=== PATIENT | female | born 1975 | race Caucasian/White ===

== ENCOUNTER → 2017-06-21 | Outpatient (CLI) | payer OTHER | LOC: FIMAGING 13:29 | PROVIDERS: ATTEND Advanced Practice Midwife | DX: O09.521 Supervision of elderly multigravida, first trimester (principal); O99.281 Endocrine, nutritional and metabolic diseases complicating pregnancy, first trimester; E03.9 Hypothyroidism, unspecified; Z3A.12 12 weeks gestation of pregnancy; Z86.718 Personal history of other venous thrombosis and embolism ==

== ENCOUNTER → 2017-07-17 | Outpatient (CLI) | payer OTHER | LOC: FIMAGING 12:13 | PROVIDERS: ATTEND Obstetrics & Gynecology | DX: Z36.89 Encounter for other specified antenatal screening (principal); Z3A.16 16 weeks gestation of pregnancy; O09.522 Supervision of elderly multigravida, second trimester; O99.282 Endocrine, nutritional and metabolic diseases complicating pregnancy, second trimester; E03.9 Hypothyroidism, unspecified ==

== ENCOUNTER → 2017-08-16 | Outpatient (CLI) | payer OTHER | LOC: FIMAGING 13:13 | PROVIDERS: ATTEND Obstetrics & Gynecology | DX: O09.512 Supervision of elderly primigravida, second trimester (principal); Z3A.20 20 weeks gestation of pregnancy ==

== ENCOUNTER → 2017-10-03 | Outpatient (CLI) | payer OTHER | LOC: FIMAGING 15:06 | PROVIDERS: ATTEND Advanced Practice Midwife | DX: N60.01 Solitary cyst of right breast (principal); N60.02 Solitary cyst of left breast ==

== ENCOUNTER 2017-12-27 06:02 | Inpatient (IN) | payer OTHER ==
[2017-12-27] MEDS ORDERED: TERBUTALINE SULFATE 1 MG/ML VIAL IV PRN (06:45)
[2017-12-27] MEDS ORDERED: OLIVE OIL 118 ML BTL MISC PRN (06:45)
[2017-12-27] MEDS ORDERED: EPSOM SALT 454 GM TP PRN (06:45)
[2017-12-27] MEDS ORDERED: LR 1,000 ML IV PRN (06:45)
[2017-12-27] MEDS ORDERED: IBUPROFEN 600 MG TAB PO PRN (06:45)
[2017-12-27] MEDS ORDERED: OXYTOCIN/RINGERS LACTATE 1,000 ML IV PRN (06:45)
[2017-12-27] MEDS ORDERED: LIDOCAINE 1% 300 MG/30 ML SDV SC PRN (06:45)
[2017-12-27] MEDS ORDERED: MISOPROSTOL 200 MCG TAB PR PRN (06:45)
[2017-12-27 07:14] LABS: PLATELET COUNT 322 10^3/uL (150-400)
[2017-12-27] MEDS ORDERED: TERBUTALINE SULFATE 1 MG/ML VIAL ONE (07:17)
[2017-12-27] MEDS ORDERED: OXYTOCIN 10 UNIT/ML VIAL ONE (07:17)
[2017-12-27] MEDS ORDERED: LIDOCAINE 1% 300 MG/30 ML SDV ONE (07:17)
[2017-12-27] MEDS ORDERED: OLIVE OIL 118 ML BTL ONE (07:17)
[2017-12-27] MEDS ORDERED: AMMONIA AROMATIC 1 EACH AMP IH ONE (07:17)
[2017-12-27] MEDS ORDERED: MISOPROSTOL 200 MCG TAB ONE (07:18)
[2017-12-27] MEDS: ONDANSETRON 4 MG/2 ML VIAL IVP PRN ×2 (07:39→20:22)
--- NOTE | 2017-12-27 07:51 | PDGENHP ---
History and Physical History and Physical: CARE: Formerly [facility] HPI: Tamar is a [id number] with IUP@ 39-6 wks that presents to L&D for IOL 2/2 AMA (42yo). She was seen in office yesterday 12/26/17 and had basurto balloon placed with 40mL. She presents to labor and delivery this morning with regular and painful contractions. She denies any LOF, VB. She reports +FM. Basurto Balloon is not in cervix- came out at some point, though patient is unaware of when. EDC: 12/28/17 which is based on LMP: 03/23/17 which is known and consistent with Ultrasound at 9weeks. Her is complicated by: - AMA (42yo) - hypothyroid - h/o DVT (on lovenox, then switched to heparin at 36wks) - monosomy X - h/o MJ use (none during ) Review of Systems: Constitutional: Denies any fever, chills, or fatigue HEENT: denies any visual changes, difficulty swallowing, hearing loss Cardiovascular: Denies any chest pain, palpitations, leg swelling Respiratory: denies any cough, wheezing, or shortness of breathe GI: Denies any nausea, vomiting, diarrhea, constipation : denies any dysuria, urgency, frequency, vaginal bleeding Musculoskeletal: denies any muscle or bone pain Skin: denies any rashes Neuro: denies any headache, seizures, lightheadedness, dizziness, or loss of consciousness Psychiatric: denies any depression, anxiety, or SI/HI thoughts HISTORY: Previous OB history: EAB x2 (no complications) Past medical history: h/o DVT, hypothyroid Past surgical history: lumpectomy Medications: PNV, levothyroxine, heparin Allergies (list reaction): NKDA LABS: Rh:A+ ABS: Neg Rubella: Immune HbsAg: NR HIV: NR VDRL: NR 1hr: 89 GC: Neg Chlamydia: Neg Pap: Normal GBS: negative BMI: (prepreg) 22 PHYSICAL EXAM: Constitutional: WN, A&Ox3 HEENT: normocephalic atraumatic, supple Heart: RRR, no murmur Chest: CTA-B Abdomen: Soft, nontender, gravid SVE: 1/th/high (in office on 12/26/17) Extremities: no edema, negative homans sign Neuro: grossly normal Psych: normal affect assessment: Reassuring FHTs, cat 1 FHR tracing +accels, no decels, moderate variability Contractions: toco q 2-4min Assessment: 1) 42yo with IUP@ 39-6wks (L/9) 2) active labor 3) GBS negative 4) Cat 1 FHR tracing Plan: 1) Admit to L&D 2) expectant management 3) pain management PRN 4) reassess 2hr/PRN 5) anticipate 6) Dr Hendricks aware of POC
[2017-12-27] MEDS: fentaNYL 100 MCG/2 ML INJ IVP PRN ×2 (08:39→10:29)
--- NOTE | 2017-12-27 08:39 | OBPROG ---
Labor Progress Note Assessment/Plan: Assessment: [id number] with IUP@39-6wks IOL 2/2 AMA (42yo) d/o DVT, on anticoag (last dose 12/26 @ 1000) early labor cat 1 FHR tracing GBS neg Plan: cont expectant management IV pain meds JACQUES if desired reassess 2hr/PRN 12/27/17 08:34 Subjective/Intrapartum Course: 12/27/17 09:21 Pt doing well, breathing through each contraction. She has tried hydrotherapy. currently on hands/knees. She has received pain meds via IV. She declines JACQUES at this time. Edwin, partner, supportive at BS. Objective: 12/27/17 06:30 Patient ABO/Rh A POSITIVE 12/27/17 06:30 - SVE Dilation (cm): 3 Effacement (%): 90 Station: -1 - Contraction Pattern Assessment Current Contraction Pattern: Regular - FHR Assessment Oconnell FHR (bpm): 130 FHR Pattern Variability: Moderate FHR Category: 1 Oxytocin Orders Assessment - Pre-Induction/Augmentation Assessment Gestational Age: 39 week(s) and 6 day(s) ICD10 Worksheet Patient Problems: Problems Problem Status Onset AMA (advanced maternal age) primigravida 35+ Acute Labor without complication Acute
[2017-12-27] MEDS ORDERED: PHENYLEPHRINE HCL 100 MCG/ML SYR ONE (10:33)
[2017-12-27] MEDS ORDERED: BUPIVACAINE 0.25% 30 ML SDV ONE (10:33)
[2017-12-27] MEDS ORDERED: ONDANSETRON 4 MG/2 ML VIAL IVP PRN (11:13)
[2017-12-27] MEDS ORDERED: PHENYLEPHRINE HCL 100 MCG/ML SYR IVP PRN (11:13)
[2017-12-27] MEDS ORDERED: METOCLOPRAMIDE 10 MG/2 ML VIAL IVP PRN (11:13)
[2017-12-27] MEDS ORDERED: NALOXONE HCL 0.4 MG/ML INJ IVP PRN (11:13)
--- NOTE | 2017-12-27 11:13 | PREANESOB ---
Obstetric Pre-Anesthesia Info - General Info Proposed Procedure: cse for L : 3 Para: 0 BRAIN: 12/28/17 Gestational Age: 39 week(s) and 6 day(s) - Info Status: Full Term - Labor Status Cervical Dilation per last OB SVE: 5 Station per last OB SVE: -1 Amniotic Fluid Color: Clear Pitocin: In Use Indications for Labor Analgesia: Augmentation of Labor, Induction of Labor Labor Epidural: Proposed Anesthesia Allergies/Adverse Reactions: Allergy/AdvReac Type Severity Reaction Status Date / Time cefaclor [From Ceclor] Allergy Verified 12/27/17 06:24 cephalexin [From Keflex] Allergy Verified 12/27/17 06:24 cephalexin monohydrate Allergy Verified 12/27/17 06:24 [From Keflex] erythromycin base Allergy Verified 12/27/17 06:24 [From Freeman-Tab] Penicillins Allergy Verified 12/27/17 06:24 Sulfa (Sulfonamide Allergy Verified 12/27/17 06:24 Antibiotics) tetracycline Allergy Verified 12/27/17 06:24 Home Medications: Medication Instructions Recorded Ciprofloxacin [Cipro 500 mg] 500 mg PO BID@1000,2000 #10 tab 02/10/11 Hydrocodone Bit/Acetaminophen 1 tab PO Q4-6PRN PRN #20 tab 02/10/11 [Vicodin 5/500] Levothyroxine [Levothroid, 150 mcg PO DAILY@1000 02/10/11 Synthroid] ACETAMINOPHEN 12/27/17 B-6 12/27/17 Benadryl 25 MG (*) 12/27/17 Heparin 12/27/17 Iron 12/27/17 12/27/17 Prevacid 12/27/17 Unisom 12/27/17 Visit Medications: Generic Name Dose Route Start Last Admin Trade Name Freq PRN Reason Stop Dose Admin Fentanyl 50 mcg 12/27/17 08:34 12/27/17 10:29 Sublimaze IVP 01/06/18 08:33 50 mcg Q4HRS PRN Administration Pain, Severe Unable to Take PO Lactated Ringer's 1,000 mls @ 0 mls/hr 12/27/17 06:45 Lr IV 12/28/17 06:44 PRN PRN SEE PROTOCOL CONDITIONS Protocol Per Protocol Oxytocin/Lactated Ringer's 1,000 mls @ 125 mls/hr 12/27/17 06:45 Pitocin 20 Units/Lr (Premix) IV PRN PRN Post bleeding Ibuprofen 600 mg 12/27/17 06:45 Motrin PO ONCE PRN post , pain Lidocaine HCl 300 mg 12/27/17 06:45 Lidocaine Hcl 1% SC 06/25/18 06:44 ONCE PRN episiotomy Magnesium Sulfate 454 gm 12/27/17 06:45 Epsom Salt TP 06/25/18 06:44 Q1H PRN perineal discomfort Misoprostol 800 - 1,000 mcg 12/27/17 06:45 Cytotec HI ONCE PRN Vaginal Atony/Bleeding [place] Oil 118 ml 12/27/17 06:45 Sweet Oil MISC 06/25/18 06:44 ONCE PRN perineal massage Ondansetron HCl 4 mg 12/27/17 07:25 12/27/17 07:39 Zofran IVP 06/25/18 07:24 4 mg Q4HRS PRN Administration Nausea/Vomiting, Can't Take PO Terbutaline Sulfate 0.25 mg 12/27/17 06:45 Brethine IV 06/25/18 06:44 ONCE PRN Tachysystole Discontinued Medications Generic Name Dose Route Start Last Admin Trade Name Freq PRN Reason Stop Dose Admin Ammonia (Aromatic Spirit) Confirm 12/27/17 07:17 Ammonia Aromatic Administered 12/27/17 07:18 Dose 1 each IH .STK-MED ONE Bupivacaine HCl Confirm 12/27/17 10:33 Sensorcaine 0.25% Sdv Administered 12/27/17 10:34 Dose 30 ml .ROUTE .STK-MED ONE Lidocaine HCl Confirm 12/27/17 07:17 Lidocaine Hcl 1% Administered 12/27/17 07:18 Dose 300 mg .ROUTE .STK-MED ONE Misoprostol Confirm 12/27/17 07:18 Cytotec Administered 12/27/17 07:19 Dose 1,000 mcg .ROUTE .STK-MED ONE [place] Oil Confirm 12/27/17 07:17 Sweet Oil Administered 12/27/17 07:18 Dose 118 ml .ROUTE .STK-MED ONE Oxytocin Confirm 12/27/17 07:17 Pitocin Administered 12/27/17 07:18 Dose 40 unit .ROUTE .STK-MED ONE Phenylephrine HCl Confirm 12/27/17 10:33 Neosynephrine Administered 12/27/17 10:34 Dose 1,000 mcg .ROUTE .STK-MED ONE Terbutaline Sulfate Confirm 12/27/17 07:17 Brethine Administered 12/27/17 07:18 Dose 1 mg .ROUTE .STK-MED ONE - Vital Signs Height/Weight (Nursing): Height 162.56 cm Weight 74.843 kg - Focused Exam Neck exam: FROM Mallampati Score: Class 1 Mouth exam: normal dental/mouth exam Pulmonary: no respiratory distress Cardiovascular: regular rate and rhythym Labs: 12/27/17 06:30 12/27/17 06:30 Patient ABO/Rh A POSITIVE 12/27/17 06:30 Uric Acid 4.0 mg/dL (2.5-6.8) 12/27/17 06:30 Total Bilirubin 0.4 mg/dL (0.1-1.4) 12/27/17 06:30 Conjugated Bilirubin 0.3 mg/dL (0.0-0.5) 12/27/17 06:30 Unconjugated Bilirubin 0.1 mg/dL (0.0-1.1) 12/27/17 06:30 AST 17 IU/L (14-46) 12/27/17 06:30 ALT 20 IU/L (9-52) 12/27/17 06:30 Lactate Dehydrogenase 414 IU/L (313-618) 12/27/17 06:30
[2017-12-27] MEDS ORDERED: FENT2MCG/ML&BUP0.1% 1 EA, fentaNYL 200 MCG, BUPIVACAINE 0.5% 20 ML in NS 100 ML IV SCH (11:20)
[2017-12-27] MEDS ORDERED: fentaNYL 2MCG/ML/BUP 0.1% RTU 100 ML EP SCH (11:30)
[2017-12-27] MEDS ORDERED: LR 500 ML IV SCH (11:30)
--- NOTE | 2017-12-27 13:49 | OBPROG ---
Labor Progress Note Assessment/Plan: Assessment: [id number] with IUP@39-6wks IOL 2/2 AMA (42yo) d/o DVT, on anticoag (last dose 12/26 @ 1000) early labor cat 1 FHR tracing GBS neg Plan: cont expectant management JACQUES - anesthesia paged reassess PRN Subjective/Intrapartum Course: 12/27/17 09:21 Pt doing well, breathing through each contraction. She has tried hydrotherapy. currently on hands/knees. She has received pain meds via IV. She declines JACQUES at this time. Edwin, partner, supportive at BS. 12/27/17 13:46 Pt doing ok- desires pain relief with JACQUES. breathing through contractions, states pain 10. Objective: 12/27/17 06:30 12/27/17 06:30 Patient ABO/Rh A POSITIVE 12/27/17 06:30 Uric Acid 4.0 mg/dL (2.5-6.8) 12/27/17 06:30 Total Bilirubin 0.4 mg/dL (0.1-1.4) 12/27/17 06:30 Conjugated Bilirubin 0.3 mg/dL (0.0-0.5) 12/27/17 06:30 Unconjugated Bilirubin 0.1 mg/dL (0.0-1.1) 12/27/17 06:30 AST 17 IU/L (14-46) 12/27/17 06:30 ALT 20 IU/L (9-52) 12/27/17 06:30 Lactate Dehydrogenase 414 IU/L (313-618) 12/27/17 06:30 - SVE Dilation (cm): 3 Effacement (%): 90 Station: -1 Amniotic Fluid Color: Clear - Contraction Pattern Assessment Current Contraction Pattern: Regular Oxytocin Orders Assessment - Pre-Induction/Augmentation Assessment Gestational Age: 39 week(s) and 6 day(s) ICD10 Worksheet Patient Problems: Problems Problem Status Onset AMA (advanced maternal age) primigravida 35+ Acute Labor without complication Acute - ICD10 Problem Qualifiers (1) Labor without complication (2) AMA (advanced maternal age) primigravida 35+
--- NOTE | 2017-12-27 13:52 | OBPROG ---
Labor Progress Note Assessment/Plan: Assessment: [id number] with IUP@39-6wks IOL 2/2 AMA (42yo) h/o DVT, on anticoag (last dose 12/26 @ 1000) labor cat 1 FHR tracing GBS neg AROM- MSF Plan: cont expectant management reassess 2hr/PRN anesthesia to be paged 2/2 inadequate relief. 12/27/17 13:51 Subjective/Intrapartum Course: 12/27/17 09:21 Pt doing well, breathing through each contraction. She has tried hydrotherapy. currently on hands/knees. She has received pain meds via IV. She declines JACQUES at this time. Edwin, partner, supportive at BS. Objective: 12/27/17 06:30 12/27/17 06:30 Patient ABO/Rh A POSITIVE 12/27/17 06:30 Uric Acid 4.0 mg/dL (2.5-6.8) 12/27/17 06:30 Total Bilirubin 0.4 mg/dL (0.1-1.4) 12/27/17 06:30 Conjugated Bilirubin 0.3 mg/dL (0.0-0.5) 12/27/17 06:30 Unconjugated Bilirubin 0.1 mg/dL (0.0-1.1) 12/27/17 06:30 AST 17 IU/L (14-46) 12/27/17 06:30 ALT 20 IU/L (9-52) 12/27/17 06:30 Lactate Dehydrogenase 414 IU/L (313-618) 12/27/17 06:30 - SVE Dilation (cm): 5 Effacement (%): 90 Station: -1 Membranes: AROM Amniotic Fluid Color: Meconium Stained - Contraction Pattern Assessment Current Contraction Pattern: Regular - Procedures Non-surgical Procedures: Amniotomy Oxytocin Orders Assessment - Pre-Induction/Augmentation Assessment Gestational Age: 39 week(s) and 6 day(s) ICD10 Worksheet Patient Problems: Problems Problem Status Onset AMA (advanced maternal age) primigravida 35+ Acute Labor without complication Acute Thin meconium stained amniotic fluid Acute - ICD10 Problem Qualifiers (1) Thin meconium stained amniotic fluid
--- NOTE | 2017-12-27 14:11 | OBPROG ---
Labor Progress Note Assessment/Plan: Assessment: [id number] with IUP@39-6wks IOL 2/2 AMA (42yo) h/o DVT, on anticoag (last dose 12/26 @ 1000) labor cat 1 FHR tracing GBS neg AROM- MSF headache Plan: cont expectant management reassess 2hr/PRN tylenol 1000mg q8/PRN 12/27/17 13:51 12/27/17 14:09 12/27/17 14:11 Subjective/Intrapartum Course: pt doing well, now comfortable with JACQUES. She denies any pain or pressure. family at , supportive. 12/27/17 14:10 Objective: 12/27/17 06:30 12/27/17 06:30 Patient ABO/Rh A POSITIVE 12/27/17 06:30 Uric Acid 4.0 mg/dL (2.5-6.8) 12/27/17 06:30 Total Bilirubin 0.4 mg/dL (0.1-1.4) 12/27/17 06:30 Conjugated Bilirubin 0.3 mg/dL (0.0-0.5) 12/27/17 06:30 Unconjugated Bilirubin 0.1 mg/dL (0.0-1.1) 12/27/17 06:30 AST 17 IU/L (14-46) 12/27/17 06:30 ALT 20 IU/L (9-52) 12/27/17 06:30 Lactate Dehydrogenase 414 IU/L (313-618) 12/27/17 06:30 - SVE Dilation (cm): 8 Effacement (%): 90 Station: -1 Membranes: AROM Amniotic Fluid Color: Meconium Stained - Contraction Pattern Assessment Current Contraction Pattern: Regular - FHR Assessment Oconnell FHR (bpm): 140 FHR Pattern Variability: Moderate FHR Category: 1 - Procedures Non-surgical Procedures: Amniotomy Oxytocin Orders Assessment - Pre-Induction/Augmentation Assessment Gestational Age: 39 week(s) and 6 day(s) ICD10 Worksheet Patient Problems: Problems Problem Status Onset AMA (advanced maternal age) primigravida 35+ Acute Labor without complication Acute Thin meconium stained amniotic fluid Acute - ICD10 Problem Qualifiers (1) Thin meconium stained amniotic fluid
[2017-12-27] MEDS ORDERED: ACETAMINOPHEN 500 MG TAB PO PRN (14:12)
--- NOTE | 2017-12-27 15:59 | OBPROG ---
Labor Progress Note Assessment/Plan: Assessment: [id number] with IUP@39-6wks IOL 2/2 AMA (42yo) h/o DVT, on anticoag (last dose 12/26 @ 1000) labor cat 1 FHR tracing GBS neg AROM- MSF Plan: will start pitocin at this time reassess 2h/PRN anticipate Subjective/Intrapartum Course: pt doing well, comfortable with JACQUES, using self bolus PRN for breakthrough pain. She denies any pressure. She is able to rest. Family and FOB @ BS. Objective: 12/27/17 06:30 12/27/17 06:30 Patient ABO/Rh A POSITIVE 12/27/17 06:30 Uric Acid 4.0 mg/dL (2.5-6.8) 12/27/17 06:30 Total Bilirubin 0.4 mg/dL (0.1-1.4) 12/27/17 06:30 Conjugated Bilirubin 0.3 mg/dL (0.0-0.5) 12/27/17 06:30 Unconjugated Bilirubin 0.1 mg/dL (0.0-1.1) 12/27/17 06:30 AST 17 IU/L (14-46) 12/27/17 06:30 ALT 20 IU/L (9-52) 12/27/17 06:30 Lactate Dehydrogenase 414 IU/L (313-618) 12/27/17 06:30 - SVE Dilation (cm): 8 Effacement (%): 90 Station: -1 Membranes: AROM Amniotic Fluid Color: Meconium Stained - Contraction Pattern Assessment Current Contraction Pattern: Regular - FHR Assessment Oconnell FHR (bpm): 130 (occasional variables/earlies) FHR Pattern Variability: Moderate FHR Category: 2 - Procedures Non-surgical Procedures: Amniotomy Oxytocin Orders Assessment - Pre-Induction/Augmentation Assessment Gestational Age: 39 week(s) and 6 day(s) ICD10 Worksheet Patient Problems: Problems Problem Status Onset AMA (advanced maternal age) primigravida 35+ Acute Labor without complication Acute Thin meconium stained amniotic fluid Acute - ICD10 Problem Qualifiers (1) Thin meconium stained amniotic fluid
[2017-12-27] MEDS ORDERED: LR 500 ML IV PRN (16:10)
[2017-12-27] MEDS ORDERED: OXYTOCIN/RINGERS LACTATE 500 ML IV SCH (16:30)
--- NOTE | 2017-12-27 19:25 | OBPROG ---
Labor Progress Note Assessment/Plan: Assessment: [id number] with IUP@39-6wks IOL 2/2 AMA (42yo) h/o DVT, on anticoag (last dose 12/26 @ 1000) protracted labor cat 1 FHR tracing GBS neg AROM- MSF Plan: cont pitocin augmentation reassess 3-4hr/PRN Discussed with Dr Hendricks Plan if no cervical change by 2200 will proceed with c/s 2/2 arrest of labor/ dilation 12/27/17 19:32 Subjective/Intrapartum Course: pt doing well, comfortable with JACQUES, using self bolus PRN for breakthrough pain. She denies any pressure. She is able to rest. Family and FOB @ BS. discussed with pt plan, aware and verbalizes understanding. Objective: 12/27/17 18:30 Patient ABO/Rh A POSITIVE 12/27/17 06:30 Uric Acid 4.7 mg/dL (2.5-6.8) 12/27/17 18:30 Total Bilirubin 0.8 mg/dL (0.1-1.4) D 12/27/17 18:30 Conjugated Bilirubin 0.4 mg/dL (0.0-0.5) 12/27/17 18:30 Unconjugated Bilirubin 0.4 mg/dL (0.0-1.1) 12/27/17 18:30 AST 17 IU/L (14-46) 12/27/17 18:30 ALT 25 IU/L (9-52) 12/27/17 18:30 Lactate Dehydrogenase 456 IU/L (313-618) 12/27/17 18:30 - SVE Dilation (cm): 8 Effacement (%): 90 Station: -1 Membranes: AROM Amniotic Fluid Color: Meconium Stained - Contraction Pattern Assessment Current Contraction Pattern: Regular - FHR Assessment Oconnell FHR (bpm): 135 (early decels noted) FHR Pattern Variability: Moderate FHR Category: 1 - Procedures Non-surgical Procedures: Amniotomy, IUPC Oxytocin Orders Assessment - Pre-Induction/Augmentation Assessment Gestational Age: 39 week(s) and 6 day(s) ICD10 Worksheet Patient Problems: Problems Problem Status Onset AMA (advanced maternal age) primigravida 35+ Acute Labor without complication Acute Thin meconium stained amniotic fluid Acute - ICD10 Problem Qualifiers (1) Thin meconium stained amniotic fluid
[2017-12-27 19:51] LABS: PLATELET COUNT 273 10^3/uL (150-400)
[2017-12-27] MEDS ORDERED: PROCHLORPERAZINE MALEATE 10 MG TAB PO PRN (19:51)
[2017-12-27] MEDS ORDERED: MAGNESIUM OXIDE 400 MG TAB PO ONE (19:51)
--- NOTE | 2017-12-27 21:13 | OBPROG ---
Labor Progress Note Assessment/Plan: Assessment: [id number] with IUP@39-6wks IOL 2/2 AMA (42yo) h/o DVT, on anticoag (last dose 12/26 @ 1000) protracted labor cat 1 FHR tracing GBS neg MSF decreased urine output (30mL in 2 hours) elevated BP's with headache- Normal Pre E labs Plan: cont pitocin augmentation reassess 30min-1hr and start pushing will discuss with Dr Hendricks 12/27/17 19:32 12/27/17 21:08 Subjective/Intrapartum Course: pt doing well, she is feeling pain in lower abdomen with contractions. She is using JACQUES bolus for pain. Family @ BS and supportive. Objective: 12/27/17 18:30 12/27/17 18:30 Patient ABO/Rh A POSITIVE 12/27/17 06:30 Uric Acid 4.7 mg/dL (2.5-6.8) 12/27/17 18:30 Total Bilirubin 0.8 mg/dL (0.1-1.4) D 12/27/17 18:30 Conjugated Bilirubin 0.4 mg/dL (0.0-0.5) 12/27/17 18:30 Unconjugated Bilirubin 0.4 mg/dL (0.0-1.1) 12/27/17 18:30 AST 17 IU/L (14-46) 12/27/17 18:30 ALT 25 IU/L (9-52) 12/27/17 18:30 Lactate Dehydrogenase 456 IU/L (313-618) 12/27/17 18:30 - SVE Dilation (cm): 10 Effacement (%): 100 Station: 0 Membranes: AROM Amniotic Fluid Color: Meconium Stained Dilation Complete Date: 12/27/17 Dilation Complete Time: 20:45 - Contraction Pattern Assessment Current Contraction Pattern: Regular - FHR Assessment Oconnell FHR (bpm): 145 (variable and early decels) FHR Pattern Variability: Moderate FHR Category: 2 - Procedures Non-surgical Procedures: Amniotomy, IUPC Oxytocin Orders Assessment - Pre-Induction/Augmentation Assessment Presentation: Vertex Gestational Age: 39 week(s) and 6 day(s) Estimated Weight: 2501-3400g Membrane Status: Ruptured Current Contraction Pattern: Regular - Heart Rate Pattern Oconnell FHR Baseline (bpm): 145 FHR Category: 1 FHR Pattern Variability: Moderate FHR Accelerations: Present FHR Decelerations: Early - Ayala's Score Dilation: 5-6cm Effacement: 80+ Station: -1,0 Cervix: Soft Cervix Position: Mid Ayala Score Total: 11 - Induction/Augmentation Consent Risks/Benefits of Procedure Reviewed/Pt Agrees to Proceed: Yes ICD10 Worksheet Patient Problems: Problems Problem Status Onset AMA (advanced maternal age) primigravida 35+ Acute Labor without complication Acute Thin meconium stained amniotic fluid Acute - ICD10 Problem Qualifiers (1) Thin meconium stained amniotic fluid
[2017-12-28] MEDS ORDERED: SIMETHICONE 80 MG TAB CHEW PO PRN (00:15)
[2017-12-28] MEDS ORDERED: HYDROCORTISONE 0.5% CREAM TP PRN (00:15)
--- NOTE | 2017-12-28 00:23 | OBDEL ---
Info Type: Vaginal Presentation at Delivery: Vertex L&D Analgesia/Anesthesia Type: Epidural GBS+: No Intrapartum Medications: Generic Name Dose Route Start Last Admin Trade Name Freq PRN Reason Stop Dose Admin Acetaminophen 1,000 mg 12/27/17 14:12 12/27/17 14:20 Tylenol PO 06/25/18 14:11 1,000 mg Q6HRS PRN Administration Pain, Mild/Fever, Can Take PO Fentanyl 50 mcg 12/27/17 08:34 12/27/17 10:29 Sublimaze IVP 01/06/18 08:33 50 mcg Q4HRS PRN Administration Pain, Severe Unable to Take PO Lactated Ringer's 1,000 mls @ 0 mls/hr 12/27/17 06:45 12/27/17 21:01 Lr IV 12/28/17 06:44 1,000 mls PRN PRN Administration SEE PROTOCOL CONDITIONS Protocol Per Protocol Oxytocin/Lactated Ringer's 500 mls @ 0 mls/hr 12/27/17 16:30 12/27/17 16:26 Pitocin 30 Units/Lr (Premix) IV 06/25/18 16:29 500 mls CONT ANTONIO Administration Protocol Per Protocol Ondansetron HCl 4 mg 12/27/17 07:25 12/27/17 20:22 Zofran IVP 06/25/18 07:24 4 mg Q4HRS PRN Administration Nausea/Vomiting, Can't Take PO Discontinued Medications Generic Name Dose Route Start Last Admin Trade Name Freq PRN Reason Stop Dose Admin Ibuprofen 600 mg 12/27/17 06:45 12/27/17 23:47 Motrin PO 600 mg ONCE PRN Administration post , pain Magnesium Oxide 400 mg 12/27/17 19:51 12/27/17 20:10 Magnesium Oxide PO 12/27/17 19:52 400 mg ONCE ONE Administration - Care Provider Facilities And Grounds Director/ABSTRACT CLERK: Rosa Arteaga - Hospital Course Intrapartum: pt doing well, she is feeling pain in lower abdomen with contractions. She is using JACQUES bolus for pain. Family @ BS and supportive. Vaginal Delivery - Delivery Provider Delivery Physician/CNM: Cris Crowder - Labor and Delivery Onset of Contractions Date: 12/27/17 Onset of Contractions Time: 03:00 Onset of Contractions Type: Augmented Rupture of Membranes Date: 12/27/17 Rupture of Membranes Time: 12:10 Rupture of Membranes Type: Artificial Amniotic Fluid Color: Meconium Stained Dilation Complete Date: 12/27/17 Dilation Complete Time: 20:45 Placenta Delivery Date: 12/27/17 Placenta Delivery Time: 23:10 Total Hours of Labor: 20 Non-surgical Procedures: Amniotomy, IUPC Laceration: 2nd Degree Repair: 3-0, Vicryl Vaginal Sponge Count Correct: Yes Vaginal Needle Count Correct: Yes Vaginal Sweep Performed: Yes EBL: 200 Delivery Events: None Delivery Comment: pushed x 2 hours. ABSTRACT CLERK present 2/2 MSF Cord Gases: Cord Gases Cord Blood PCO2 43.8 mmHg (37-60) 12/27/17 23:10 Cord Base Excess -10.0 mEq/L (-13.6--3.2) 12/27/17 23:10 Cord ABG pH 7.22 (7.10-7.37) 12/27/17 23:10 Cord VBG pH 7.25 (7.20-7.42) 12/27/17 23:10 - Medications Labor Augmentation/Induction Methods Used: Pitocin, Wan Bulb Labor Augmentation/Induction Indication: Contraction Strength Inadequate Operative Report - Delivery Cord Gases: Cord Gases Cord Blood PCO2 43.8 mmHg (37-60) 12/27/17 23:10 Cord Base Excess -10.0 mEq/L (-13.6--3.2) 12/27/17 23:10 Cord ABG pH 7.22 (7.10-7.37) 12/27/17 23:10 Cord VBG pH 7.25 (7.20-7.42) 12/27/17 23:10 Data BRAIN: 12/28/17 Gestational Age: 40 week(s) and 0 day(s) Oconnell Delivery Date: 12/27/17 Delivery Time: 23:02 Sex of : Female Score (1 Min): 8 Score (5 Min): 9 ICD10 Worksheet Patient Problems: Problems Problem Status Onset AMA (advanced maternal age) primigravida 35+ Acute Labor without complication Acute Thin meconium stained amniotic fluid Acute - ICD10 Problem Qualifiers (1) Thin meconium stained amniotic fluid
[2017-12-28] MEDS: HYDROCODONE/APAP 5/325 TAB PO PRN ×3 (02:02→21:48)
[2017-12-28] MEDS: IBUPROFEN 600 MG TAB PO PRN ×4 (06:30→23:31)
--- NOTE | 2017-12-28 09:53 | POSTANESTH ---
Post Anesthetic Evaluation Cardiovascular Status: Normal, Stable Respiratory Status: Normal, Stable Level of Consciousness/Mental Status: Can Participate in Eval Pain Control: Adequate, Prn Tx Ordered Nausea/Vomiting Control: Adequate, Prn Tx Ordered Complications Possibly Related to Anesthesia: None Noted
[2017-12-28] MEDS: ENOXAPARIN 40 MG/0.4 ML SYR SC SCH (10:03)
[2017-12-28] MEDS ORDERED: FAMOTIDINE 20 MG TAB PO PRN (11:10)
[2017-12-28] MEDS ORDERED: LANSOPRAZOLE SUSP 3 MG/ML UDSYR (Peds) PO SCH (11:15)
--- NOTE | 2017-12-28 11:59 | OBPP ---
Progress Note Assessment/Plan: Assessment: PPD1 s/p Lovenox restarted this AM due to h/o DVT. 40 Daily. Continuing home Levo dose of 150mcg/day. Otherwise routine cares - likely home tomorrow. Pt wanted Pevacid for acid reflux - ordered. Hct 29, will Rx Fe sups. NICHOLAS 12/28/17 23:33 Subjective/ Course: Came by to see Tamar a couple times this morning - sleeping soundly and didn't get any sleep last night per RN, so let her sleep. Came back to see her at the end of the day. Reports that pain control is good, BF going well. No acute issues. Would like to go home tomorrow AM. 12/28/17 23:30 Objective: 12/28/17 06:35 12/27/17 18:30 Patient ABO/Rh A POSITIVE 12/27/17 06:30 Uric Acid 4.7 mg/dL (2.5-6.8) 12/27/17 18:30 Total Bilirubin 0.8 mg/dL (0.1-1.4) D 12/27/17 18:30 Conjugated Bilirubin 0.4 mg/dL (0.0-0.5) 12/27/17 18:30 Unconjugated Bilirubin 0.4 mg/dL (0.0-1.1) 12/27/17 18:30 AST 17 IU/L (14-46) 12/27/17 18:30 ALT 25 IU/L (9-52) 12/27/17 18:30 Lactate Dehydrogenase 456 IU/L (313-618) 12/27/17 18:30 Temp Pulse Resp BP Pulse Ox 36.8 C 90 14 110/66 95 12/28/17 09:00 12/28/17 09:00 12/28/17 09:00 12/28/17 09:00 12/28/17 09:00 12/28/17 06:35 12/27/17 18:30 Patient ABO/Rh A POSITIVE 12/27/17 06:30 Uric Acid 4.7 mg/dL (2.5-6.8) 12/27/17 18:30 Total Bilirubin 0.8 mg/dL (0.1-1.4) D 12/27/17 18:30 Conjugated Bilirubin 0.4 mg/dL (0.0-0.5) 12/27/17 18:30 Unconjugated Bilirubin 0.4 mg/dL (0.0-1.1) 12/27/17 18:30 AST 17 IU/L (14-46) 12/27/17 18:30 ALT 25 IU/L (9-52) 12/27/17 18:30 Lactate Dehydrogenase 456 IU/L (313-618) 12/27/17 18:30 WBC 23.68 10^3/uL (3.80-9.50) H 12/27/17 18:30 RBC 3.89 10^6/uL (4.18-5.33) L 12/27/17 18:30 Hgb 12.0 g/dL (12.6-16.3) L 12/27/17 18:30 Hct 29.3 % (38.0-47.0) L 12/28/17 06:35 MCV 90.2 fL (81.5-99.8) 12/27/17 18:30 MCH 30.8 pg (27.9-34.1) 12/27/17 18:30 MCHC 34.2 g/dL (32.4-36.7) 12/27/17 18:30 RDW 13.3 % (11.5-15.2) 12/27/17 18:30 Plt Count 273 10^3/uL (150-400) 12/27/17 18:30 MPV 11.1 fL (8.7-11.7) 12/27/17 18:30 Neut % (Auto) Not Reported 12/27/17 18:30 Lymph % (Auto) Not Reported 12/27/17 18:30 Gooding % (Auto) Not Reported 12/27/17 18:30 Eos % (Auto) Not Reported 12/27/17 18:30 Baso % (Auto) Not Reported 12/27/17 18:30 Nucleat RBC Rel Count Not Reported 12/27/17 18:30 Absolute Neuts (auto) Not Reported 12/27/17 18:30 Absolute Lymphs (auto) Not Reported 12/27/17 18:30 Absolute Monos (auto) Not Reported 12/27/17 18:30 Absolute Eos (auto) Not Reported 12/27/17 18:30 Absolute Basos (auto) Not Reported 12/27/17 18:30 Absolute Nucleated RBC Not Reported 12/27/17 18:30 Immature Gran % Not Reported 12/27/17 18:30 Seg Neutrophils % 89 % 12/27/17 18:30 Band Neutrophils % 5.0 % 12/27/17 06:30 Lymphocytes % 4 % 12/27/17 18:30 Monocytes % 7 % 12/27/17 18:30 Eosinophils % 1.0 % 12/27/17 06:30 Basophils % 0 % 12/27/17 06:30 Metamyelocytes % 0 % 12/27/17 06:30 Myelocytes % 0 % 12/27/17 06:30 Promyelocytes % 0 % 12/27/17 06:30 Blast Cells % 0 % 12/27/17 06:30 Megakaryocytes % Cancelled 12/27/17 18:30 Immature Gran # Not Reported 12/27/17 18:30 Absolute Seg Neuts 21.08 10^/uL (1.70-6.50) H 12/27/17 18:30 Absolute Band Neuts 1.00 10^3/uL (0.00-0.70) H 12/27/17 06:30 Absolute Lymphocytes 0.95 10^3/uL (1.00-3.00) L 12/27/17 18:30 Absolute Monocytes 1.66 10^3/uL (0.30-0.80) H 12/27/17 18:30 Absolute Eosinophils 0.20 10^3/uL (0.03-0.40) 12/27/17 06:30 Absolute Basophils 0.00 10^3/uL (0.02-0.10) L 12/27/17 06:30 Absolute Metamyelocyte 0.00 10^3/mL (0.00-0.00) 12/27/17 06:30 Absolute Myelocytes 0.00 10^3/mL (0.00-0.00) 12/27/17 06:30 Absolute Promyelocytes 0.00 10^3/uL (0.00-0.00) 12/27/17 06:30 Absolute Plasma Cells 0.00 10^3/uL (0.00-0.00) 12/27/17 06:30 Nucleated RBCs Cancelled 12/27/17 18:30 Differential Comment Cancelled 05/03/18 18:30 RBC/WBC/PLT Morphology NORMAL (NORMAL) 12/27/17 18:30 Hypersegmented Neuts Cancelled 12/27/17 18:30 Atypical Lymphocytes Cancelled 12/27/17 18:30 Absolute Blast Cells 0.00 10^3/uL (0.00-0.00) 12/27/17 06:30 Plasma Cells % 0 % 12/27/17 06:30 Smudge Cells Cancelled 12/27/17 18:30 Toxic Granulation Cancelled 12/27/17 18:30 Toxic Vacuolation Cancelled 12/27/17 18:30 Dohle Bodies Cancelled 12/27/17 18:30 Yehuda Rods Cancelled 12/27/17 18:30 Platelet Estimate ADEQUATE (ADEQ) 12/27/17 18:30 Clumped Platelets Cancelled 12/27/17 18:30 Large Platelets Cancelled 12/27/17 18:30 Giant Platelets Cancelled 12/27/17 18:30 Bizarre Platelets Cancelled 12/27/17 18:30 Polychromasia 1+ H 12/27/17 06:30 Hypochromasia Cancelled 12/27/17 18:30 Basophilic Stippling Cancelled 12/27/17 18:30 Microcytic Cells Cancelled 12/27/17 18:30 Spherocytes Cancelled 12/27/17 18:30 Pappenheimer Bodies Cancelled 12/27/17 18:30 Sickle Cells Cancelled 12/27/17 18:30 Target Cells Cancelled 12/27/17 18:30 Tear Drop Cells Cancelled 12/27/17 18:30 Oval Macrocytes Cancelled 12/27/17 18:30 Stomatocytes Cancelled 12/27/17 18:[address] Addition Bodies Cancelled 12/27/17 18:30 Echinocytes Cancelled 12/27/17 18:30 Elliptocytes Cancelled 12/27/17 18:30 Acanthocytes (Spur) Cancelled 12/27/17 18:30 Rouleaux Cancelled 12/27/17 18:30 Keratocytes Cancelled 12/27/17 18:30 Schistocytes Cancelled 12/27/17 18:30 Cord Blood PCO2 43.8 mmHg (37-60) 12/27/17 23:10 Cord Base Excess -10.0 mEq/L (-13.6--3.2) 12/27/17 23:10 Cord ABG pH 7.22 (7.10-7.37) 12/27/17 23:10 Cord VBG pH 7.25 (7.20-7.42) 12/27/17 23:10 BUN 7 mg/dL (7-23) 12/27/17 18:30 Creatinine 0.7 mg/dL (0.6-1.0) 12/27/17 18:30 Estimated GFR > 60 12/27/17 18:30 Uric Acid 4.7 mg/dL (2.5-6.8) 12/27/17 18:30 Total Bilirubin 0.8 mg/dL (0.1-1.4) D 12/27/17 18:30 Conjugated Bilirubin 0.4 mg/dL (0.0-0.5) 12/27/17 18: Unconjugated Bilirubin 0.4 mg/dL (0.0-1.1) 12/27/17 18:30 AST 17 IU/L (14-46) 12/27/17 18:30 ALT 25 IU/L (9-52) 12/27/17 18:30 Lactate Dehydrogenase 456 IU/L (313-618) 12/27/17 18:30 Cold Agglutinins Cancelled 12/27/17 18:30 Patient ABO/Rh A POSITIVE 12/27/17 Antibody Screen NEGATIVE 12/27/17:30
[2017-12-28] MEDS ORDERED: LANSOPRAZOLE SUSP 3 MG/ML UDSYR (Peds) PO PRN (12:05)
[2017-12-28] MEDS: DOCUSATE SODIUM 100 MG CAP PO PRN (18:12)
[2017-12-29] MEDS: LEVOTHYROXINE 150 MCG TAB PO SCH ×2 (06:00→06:33)
[2017-12-29] MEDS: IBUPROFEN 600 MG TAB PO PRN ×2 (06:01→12:04)
[2017-12-29] MEDS: HYDROCODONE/APAP 5/325 TAB PO PRN (08:52)
[2017-12-29] MEDS ORDERED: IRON POLYSAC/IRON HEME 28 MG TAB PO SCH (09:00)
[2017-12-29 09:07] VITALS: BP 125/78
[2017-12-29] MEDS: ENOXAPARIN 40 MG/0.4 ML SYR SC SCH (09:55)
[2017-12-29] MEDS: DOCUSATE SODIUM 100 MG CAP PO PRN (10:05)
--- NOTE | 2017-12-29 10:28 | OBGCSDC ---
General Delivery Information - General Info : 3 Para: 1 Abortions: 2 Type: Vaginal L&D Analgesia/Anesthesia Type: Epidural Admission Date: 12/27/17 Labs: Patient ABO/Rh A POSITIVE 12/27/17 06:30 Hct 29.3 % (38.0-47.0) L 12/28/17 06:35 - Hospital Course Intrapartum: pt doing well, she is feeling pain in lower abdomen with contractions. She is using JACQUES bolus for pain. Family @ [facility] and supportive. : Came by to see Tamar a couple times this morning - sleeping soundly and didn't get any sleep last night per RN, so let her sleep. Came back to see her at the end of the day. Reports that pain control is good, BF going well. No acute issues. Would like to go home tomorrow AM. 12/28/17 23:30 12/29/17 10:25 S) Pt doing well, reports min pain and bleeding. she is ambulating and voiding without difficulty. She is . She desires discharge home today. O) VSS, afebrile constitutional: WNWF, A&Ox3 HEENT: normocephalic, atraumatic, supple Heart: RRR, No murmur Chest: CTA-B Abdomen: Soft, nontender Uterus: Firm at U-2 Lochia: Minimal rubra Perineum: Intact, healing well Extremities: Trace edema, and negative Farida's sign Neuro: Grossly normal A) [id number] S/P PPD#2 h/o DVT P) Discharge home today cont lovenox 40mg SQ (pt has rx already) Continue Pelvic rest x6wks Discussed danger signs (infection, preeclampsia, depression, heavy bleeding, etc ) RTO in 2/4/6 weeks Vaginal - Delivery Provider Delivery Physician/CNM: Cris Crowder - Diagnosis Labor: Augmented Rupture of Membranes Type: Artificial Amniotic Fluid Color: Meconium Stained Laceration: 2nd Degree Repair: 3-0, Vicryl Delivery Events: None - Procedures Non-surgical Procedures: Amniotomy, IUPC - Delivery Non-surgical Procedures: Amniotomy, IUPC EBL: 200 Data BRIAN: 12/28/17 Gestational Age: 40 week(s) and 1 day(s) [place] Delivery Date: 12/27/17 Delivery Time: 23:02 Sex of : Female [place] Weight (gm): 2848 g Score (1 Min): 8 Score (5 Min): 9 Discharge Information - Discharge Information Condition: Good Instruction/Follow Up: Two Weeks, Four Weeks, Six Weeks
== END 2017-12-29 12:00 | disposition home or self-care (01) | DRG 775 ==
LOC: FLD 06:02 → FOB 12-28 01:20
PROVIDERS: ADMIT Advanced Practice Midwife; ATTEND Obstetrics & Gynecology
PROC: 10E0XZZ Delivery of Products of Conception, External Approach (ICD-10-PCS; principal; 2017-12-27)
PROC: 0KQM0ZZ Repair Perineum Muscle, Open Approach (ICD-10-PCS; principal; 2017-12-27)
PROC: 10H073Z Insertion of Monitoring Electrode into Products of Conception, Via Natural or Artificial Opening (ICD-10-PCS; principal; 2017-12-27)
DX: O36.8330 Maternal care for abnormalities of the fetal heart rate or rhythm, third trimester, not applicable or unspecified (principal); O77.0 Labor and delivery complicated by meconium in amniotic fluid; O70.1 Second degree perineal laceration during delivery; O35.1XX0 Maternal care for (suspected) chromosomal abnormality in fetus, not applicable or unspecified; Z3A.39 39 weeks gestation of pregnancy; Z37.0 Single live birth; E03.9 Hypothyroidism, unspecified; O99.283 Endocrine, nutritional and metabolic diseases complicating pregnancy, third trimester; Z86.718 Personal history of other venous thrombosis and embolism
CPT/HCPCS: J1650; J2370; J2405; J2590; J3010; J3105

== ENCOUNTER → 2018-01-08 | Outpatient (CLI) | payer OTHER | LOC: FLACT 12:14 → EDSTATUS 12:16 | PROVIDERS: ATTEND Advanced Practice Midwife | DX: O92.79 Other disorders of lactation (principal) | CPT/HCPCS: G0463 ==

== ENCOUNTER → 2019-01-07 | Outpatient (CLI) | payer OTHER | LOC: FIMAGING 11:04 | PROVIDERS: ATTEND Family Medicine | DX: M25.532 Pain in left wrist (principal) ==